=== PATIENT | male | born 1965 | race Caucasian/White ===

== ENCOUNTER 2021-03-15 16:31 | Emergency (ER) | payer OTHER ==
[2021-03-15 16:52] VITALS: BP 139/73; PULSE 73
[2021-03-15] MEDS ORDERED: methylPREDNISolone Sodium Succinate 125 MG/2 ML SDV IM ONE (16:53)
--- NOTE | 2021-03-15 16:55 | EDM.PDOC ---
ED HPI GENERAL MEDICAL PROBLEM - General Chief Complaint: Respiratory Problem Stated Complaint: COUGH, BODY ACHE Time Seen by Provider: 03/15/21 16:54 Source of Information: Reports: Patient History Limitations: Reports: No Limitations - History of Present Illness INITIAL COMMENTS - FREE TEXT/NARRATIVE: patient reports sore throat, runny nose, sinus congestion for 2-3 days. Also reports watery eyes. no SOB, mild chills. no abd pain, no GI symptoms. denies contact with sick patients. he reports he is worried about COVID. had the vaccine few months ago. - Related Data Allergies Allergy/AdvReac Type Severity Reaction Status Date / Time No Known Allergies Allergy Verified 03/15/21 17:12 Home Meds: Home Meds Allopurinol [Zyloprim] 100 mg PO DAILY 12/24/15 [History] Valsartan/Hydrochlorothiazide [Valsartan-Hctz 320-25 mg Tab] 1 each PO DAILY 12/24/15 [History] Ascorbic Acid [Vitamin C] 500 mg PO DAILY 07/30/18 [History] Aspirin [Maurice Chewable] 81 mg PO DAILY 07/30/18 [History] Calcium Carbonate [Calcium] 600 mg PO DAILY 07/30/18 [History] Glucosamine [Glucosamine Sulfate] 500 mg PO DAILY 07/30/18 [History] Multivitamin [Daily Multiple Vitamin] 1 tab PO DAILY 07/30/18 [History] Nebivolol [Bystolic] 20 mg PO DAILY 07/30/18 [History] [place]-3/DHA/Epa/Fish Oil [[place]-3 Fish Oil 1,000 MG Sfgl] 1,000 mg PO DAILY 07/30/18 [History] atorvaSTATin [Lipitor] 10 mg PO BEDTIME 07/30/18 [History] sitaGLIPtin Phos/Metformin HCl [Janumet Xr 100-1,000 mg Tablet] 1 tab PO WITHDINNER 07/30/18 [History] Azithromycin 250 mg PO DAILY #6 tablet 03/15/21 [Rx] Cetirizine [ZyrTEC] 10 mg PO DAILY #20 tab 03/15/21 [Rx] methylPREDNISolone [Medrol Dose Pack] 84 mg PO DAILY #1 dospk 03/15/21 [Rx] Past Medical History HEENT History: Reports: Impaired Vision Cardiovascular History: Reports: Hypertension Respiratory History: Reports: Sleep Apnea Gastrointestinal History: Reports: Colon Polyp Musculoskeletal History: Reports: Gout Endocrine/Metabolic History: Reports: Diabetes, Type II - Infectious Disease History Infectious Disease History: Reports: Chicken Pox - Past Surgical History HEENT Surgical History: Reports: None Cardiovascular Surgical History: Reports: None Respiratory Surgical History: Reports: None GI Surgical History: Reports: Colonoscopy, Polypectomy Musculoskeletal Surgical History: Reports: Hip Replacement Social & Family History - Family History Family Medical History: No Pertinent Family History ED ROS GENERAL - Review of Systems Review Of Systems: See Below Constitutional: Reports: Chills, Malaise HEENT: Reports: Rhinitis, Sinus Problem, Throat Pain Respiratory: Reports: Cough Cardiovascular: Reports: No Symptoms GI/Abdominal: Reports: No Symptoms Musculoskeletal: Reports: No Symptoms Skin: Reports: No Symptoms Neurological: Reports: No Symptoms ED EXAM, GENERAL - Physical Exam Exam: See Below Exam Limited By: No Limitations General Appearance: Alert, WD/WN, No Apparent Distress Eye Exam: Bilateral Eye: Conjunctival Injection, EOMI Head: Atraumatic Neck: Normal Inspection, Supple Respiratory/Chest: No Respiratory Distress, Lungs Clear Cardiovascular: Normal Peripheral Pulses, Regular Rate, Rhythm GI/Abdominal: Normal Bowel Sounds, Soft Neurological: Alert, Oriented, No Motor/Sensory Deficits Psychiatric: Normal Affect, Normal Mood Skin Exam: Warm, Dry, Intact Course - Vital Signs Last Recorded V/S: Last Vital Signs Temp 37.2 C 03/15/21 16:50 Pulse 73 03/15/21 16:50 Resp 18 03/15/21 16:50 BP 139/73 03/15/21 16:50 Pulse Ox 93 L 03/15/21 16:50 - Orders/Labs/Meds Labs: Laboratory Tests 03/15/21 Range/Units 17:50 SARS CoV-2 RNA Rapid LIBAN Negative Meds: Medications Discontinued Medications Generic Name Dose Route Start Last Admin Trade Name Freq PRN Reason Stop Dose Admin Methylprednisolone Sodium Succinate 125 mg 03/15/21 16:53 03/15/21 17:24 Methylprednisolone Sodium Succinate 125 Mg/2 Ml Sdv IM 03/15/21 16:54 125 mg ONETIME ONE Administration - Re-Assessments/Exams Free Text/Narrative Re-Assessment/Exam: Covid test was ordered IM solumedrol was given 03/15/21 18:45 reports significant improvement in symptoms COVID test negative Departure - Departure Time of Disposition: 18:45 Disposition: Home, Self-Care 01 Condition: Good Clinical Impression: Acute allergic rhinitis Sinusitis Qualifiers: Sinusitis location: maxillary Chronicity: acute Recurrence: non-recurrent Qualified Code(s): J01.00 - Acute maxillary sinusitis, unspecified - Discharge Information *PRESCRIPTION DRUG MONITORING PROGRAM REVIEWED*: Not Applicable *COPY OF PRESCRIPTION DRUG MONITORING REPORT IN PATIENT BEST: Not Applicable Prescriptions: Azithromycin 250 mg PO DAILY #6 tablet methylPREDNISolone [Medrol Dose Pack] 84 mg PO DAILY #1 dospk Cetirizine [ZyrTEC] 10 mg PO DAILY #20 tab Instructions: Sinusitis, Adult, [id number], Allergic Rhinitis, Adult Referrals: PCP,None [Primary Care Provider] - Forms: ED Department Discharge Additional Instructions: - take oral antibiotics and steroids as prescribed - increase fluids intake - follow up with your PCP in 1-2 weeks as needed Sepsis Event Note (ED) - Evaluation Sepsis Screening Result: No Definite Risk - Focused Exam Vital Signs: Vital Signs Temp Pulse Resp BP Pulse Ox 03/15/21 16:50 37.2 C 73 18 139/73 93 L - Problem List & Annotations (1) Acute allergic rhinitis SNOMED Code(s): 54449233, 226258749 Code(s): J30.9 - ALLERGIC RHINITIS, UNSPECIFIED Status: Acute Priority: Medium Current Visit: Yes (2) Sinusitis SNOMED Code(s): 85663157 Code(s): J32.9 - CHRONIC SINUSITIS, UNSPECIFIED Status: Acute Priority: Medium Current Visit: Yes Qualifiers: Sinusitis location: maxillary Chronicity: acute Recurrence: non-recurrent Qualified Code(s): J01.00 - Acute maxillary sinusitis, unspecified - Problem List Review Problem List Initiated/Reviewed/Updated: Yes - Assessment/Plan Plan: - take oral antibiotics and steroids as prescribed - increase fluids intake - follow up with your PCP in 1-2 weeks as needed
== END 2021-03-15 19:00 | disposition home or self-care (01) ==
LOC: LB.ED 16:31
DX: J01.00 Acute maxillary sinusitis, unspecified (principal); J30.9 Allergic rhinitis, unspecified; I10 Essential (primary) hypertension; M10.9 Gout, unspecified; E11.9 Type 2 diabetes mellitus without complications; Z79.82 Long term (current) use of aspirin; Z79.899 Other long term (current) drug therapy; Z20.822 Contact with and (suspected) exposure to COVID-19
CPT/HCPCS: 87635; 96372; 99283; J2930; U0002

== ENCOUNTER 2025-02-24 13:38 | Emergency (ER) | payer OTHER ==
[2025-02-24] MEDS: Lidocaine 1% 5 ML VIAL INJECT ONE (14:45)
[2025-02-24] MEDS: cefTRIAXone 1 GM Vial IM ONE (14:45)
[2025-02-24 15:40] VITALS: BP 112/70; PULSE 85
== END 2025-02-24 14:52 | disposition home or self-care (01) ==
LOC: LB.ED 13:38
DX: L03.211 Cellulitis of face (principal); I10 Essential (primary) hypertension; E11.9 Type 2 diabetes mellitus without complications; Z79.84 Long term (current) use of oral hypoglycemic drugs; Z79.899 Other long term (current) drug therapy; Z79.82 Long term (current) use of aspirin
CPT/HCPCS: 96372; 99283; J0696; J2003